=== PATIENT | male | born 2000 | race Caucasian/White ===

== ENCOUNTER 2019-02-04 10:52 | Emergency (ER) | payer OTHER, SELFPAY ==
[2019-02-04] MEDS ORDERED: Proparacaine 0.5% Opth 15 ML BOT ONE (11:15)
[2019-02-04] MEDS ORDERED: Fluorescein Opthalmic Strip ONE (11:15)
== END 2019-02-04 12:19 | disposition home or self-care (01) ==
LOC: ERS 10:52
DX: S05.02XA Injury of conjunctiva and corneal abrasion without foreign body, left eye, initial encounter (principal); W25.XXXA Contact with sharp glass, initial encounter
CPT/HCPCS: 65220